=== PATIENT | female | born 1980 ===

== ENCOUNTER 2019-07-21 07:01 | Day surgery (SDC) | payer BC ==
[~2019-07-21] VITALS: Ht 162.6 cm; Wt 65.3 kg
[2019-07-21] VITALS (8 sets, daily range): BP systolic 98–123; BP diastolic 47–75
[2019-07-21] MEDS ORDERED: NKM (08:15)
--- NOTE | 2019-07-21 08:37 | Anethesia Preoperative Eval ---
Anesthesia Pre-op PMH/ROS General Date of Evaluation: Jul 21, 2019 Time of Evaluation: 09:00 Anesthesiologist: Edy ASA Score: ASA 2 Mallampati Score Class I : Soft palate, uvula, fauces, pillars visible Class II: Soft palate, uvula, fauces visible Class III: Soft palate, base of uvula visible Class IV: Only hard plate visible Mallampati Classification: Class I Surgeon: aide Diagnosis: gerd Surgical Procedure: EGD w/ bx Anesthesia History: none Family History: no anesthesia problems Allergies: Coded Allergies: No Known Allergies (Unverified , 07/21/19) Medications: see eMAR Patient NPO?: Yes NPO Date: Jul 21, 2019 NPO Time: 00:01 Past Medical History Cardiovascular: Denies: HTN, CAD, MT, valve dz, arrhythmia, other Pulmonary: Denies: asthma, COPD, JUN, other Gastrointestinal/Genitourinary: Reports: GERD Neurologic/Psychiatric: Denies: dementia, CVA, depression/anxiety, TIA, other Endocrine: Denies: DM, hypothyroidism, steroids, other HEENT: Denies: cataract (L), cataract (R), glaucoma, PLATINUM (L), PLATINUM (R), other Hematology/Immune: Denies: anemia, DVT, bleeding disorder, other Musculoskeletal/Integumentary: Denies: OA, RA, DJD, DDD, edema, other Other: other - breast CA Anesthesia Pre-op Phys. Exam Physician Exam Last Vital Signs Date Time Temp Pulse Resp B/P (MAP) Pulse Ox O2 Delivery O2 Flow Rate FiO2 07/21/19 08:20 Room Air 07/21/19 08:08 97.3 70 18 98/49 100 Constitutional: NAD Neurologic: CN 2-12 intact Cardiovascular: RRR Respiratory: CTA Gastrointestinal: S/NT/ND, other Airway Exam Mallampati Classification 1 Mallampati Score: Class I MO: full ROM: full Teeth: intact Anesthesia Pre-op A/P Labs Urine Test Test 07/21/19 07:20 Urine HCG, Qualitative Negative (NEGATIVE) Risk Assessment & Plan Plan: MAC Status Change Before Surgery: No Pre-Antibiotics Given Within 1 Hr of Incision: No Rebeca Rogers M.D. Jul 21, 2019 08:37
--- NOTE | 2019-07-21 08:38 | Brief Operative Note ---
Rebeca Rogers M.D. Jul 21, 2019 08:38
--- NOTE | 2019-07-21 08:50 | 48 Hour Post Anesthesia Eval ---
Post Anesthesia Evaluation Procedure: EGD w/ bx Date of Evaluation: Jul 21, 2019 Time of Evaluation: 10:15 Blood Pressure Systolic: 110 0: 61 Pulse Rate: 62 Respiratory Rate: 20 Temperature (Fahrenheit): 98 O2 Sat by Pulse Oximetry: 100 Airway: patent Nausea: No Vomiting: No Pain Intensity: 0 Hydration Status: adequate Mental Status/LOC: patient returned to baseline Follow-up care needed: ready to discharge Rebeca Rogers M.D. Jul 21, 2019 08:50
--- NOTE | 2019-07-21 08:59 | Pre-Procedure Note/Attestation ---
Pre-Procedure Note/Attestation Complete Prior to Procedure Planned Procedure: not applicable Procedure Narrative: egd Indications for Procedure Pre-Operative Diagnosis: GERD Attestation I attest that I discussed the nature of the procedure; its benefits; risks and complications; and alternatives (and the risks and benefits of such alternatives ), prior to the procedure, with the patient (or the patient's legal assisted sales representative). I attest that, if there was a reasonable possibility of needing a blood transfusion, the patient (or the patient's legal assisted sales representative) was given the [facility] standardized written summary, pursuant to the [place] Blood Safety Act ([place] Health and Safety Code # 1645, as amended). I attest that I re-evaluated the patient just prior to the surgery and that there has been no change in the patient's H&P, except as documented below: Darrell Sellers MD Jul 21, 2019 08:59
[2019-07-21] MEDS ORDERED: LR 1000ml ONE (09:00)
[2019-07-21] MEDS ORDERED: Propofol 200mg/20ml IV ONE (09:00)
--- NOTE | 2019-07-21 09:00 | Short Stay Surgery H&P ---
History of Present Illness History of Present Illness Chief Complaint gerd HPI Olivia Camejo is a 39 year old female who was admitted on for Abdominal Pain Patient History Allergies: Coded Allergies: No Known Allergies (Unverified , 07/21/19) PAST MEDICAL HISTORY: (1) Breast CA Medication History Scheduled No Known Medications* (NKM - No Known Medications*), 0 ., (Reported) Review of Systems Cardiovascular: Reports: no symptoms Respiratory: Reports: no symptoms Skeletal: Reports: no symptoms Gastrointestinal: Reports: no symptoms Genitourinary: Reports: no symptoms Neurologic: Reports: no symptoms Endocrine: Reports: no symptoms Hematologic: Reports: no symptoms Physical Exam Vital Signs Last Vital Signs Date Time Temp Pulse Resp B/P (MAP) Pulse Ox O2 Delivery O2 Flow Rate FiO2 07/21/19 08:20 Room Air 07/21/19 08:08 97.3 70 18 98/49 100 Labs Laboratory Tests Test 07/21/19 07:20 Urine HCG, Qualitative Negative (NEGATIVE) Skin: normal HENT: normal Heart: normal Lungs: normal Abdomen: normal Extremities: normal Plan Plan of Care EGD Attestation Are the patient's medical conditions optimized for surgery? Attestation Response: yes Darrell Sellers MD Jul 21, 2019 08:59
--- NOTE | 2019-07-21 09:14 | Endoscopy Procedure Note ---
Endoscopy Procedure Note General Indication for Procedure: GERD, Procedures Performed: EGD Operative Findings/Diagnosis: DU Specimen: yes Pt Tolerated Procedure Well: Yes Estimated Blood Loss: none Anesthesia Anesthesiologist: vel Anesthesia: MAC Inserted Devices Implant(s) used?: No GI Core Measures 50 yrs or older w/o bx or poly: Not Applicable 10yrs. F/U recommended: Not Applicable Darrell Sellers MD Jul 21, 2019 09:14
--- NOTE | 2019-07-21 09:29 | Immediate Post-Op Evaluation ---
Immediate Post-Op Evalulation Immediate Post-Op Evalulation Procedure: EGD w/ bx Date of Evaluation: Jul 21, 2019 Time of Evaluation: 09:25 IV Fluids: 300ml Blood Pressure Systolic: 99 Blood Pressure Diastolic: 47 Pulse Rate: 81 O2 Sat by Pulse Oximetry: 99 Temperature (Fahrenheit): 97.1 Pain Score (1-10): 0 Nausea: No Vomiting: No Patient Status: awake Hydration Status: adequate Rebeca Rogers M.D. Jul 21, 2019 09:29
--- NOTE | 2019-07-21 14:15 | Procedure Note ---
DATE OF PROCEDURE: 07/21/2019 SURGEON: Darrell Sellers M.D. PROCEDURE: Upper endoscopy with biopsy. INSTRUMENT: Olympus adult flexible upper endoscope. ANESTHESIA: Per DrNaye . INDICATION: The patient had a positive PET scan, possible finding in the esophagus. REASON FOR PROCEDURE: The procedure, risks, benefits, and possible consequences, including hemorrhage, aspiration, perforation and infection, and alternative treatments, were explained to the patient/legal guardian by Dr. Darrell Sellers and the patient/legal guardian understood and accepted these risks. PROCEDURE IN DETAIL: After informed consent was obtained and the patient was adequately sedated, Olympus upper endoscope was advanced from mouth into the second portion of the duodenum and retroflexion was performed in the stomach. The patient had no obvious tumor seen in the esophagus. GE junction was found to be about 35 cm from the incisors. The patient has evidence of atrophic gastritis. Random biopsy from antrum and body was obtained to rule out H. pylori infection. The patient had evidence of duodenitis with possible healing duodenal ulcer in the duodenal bulb. The patient tolerated the procedure very well without any complication. SUMMARY OF FINDINGS: 1. No obvious esophageal mass. 2. Atrophic gastritis, status post biopsy to rule out H. pylori infection. 3. Shallow healing duodenal ulcer. RECOMMENDATIONS: Follow up biopsy results and treat accordingly. Follow up with Oncology for the treatment of breast cancer. I want to thank, Dr. Alondra Quijano, for this kind referral. Darrell Sellers M.D. DR: GUIDO JOB#: [id number] CC: Alondra Quijano M.D.; Fax#: [phone]
== END 2019-07-21 10:15 | disposition home or self-care (01) ==
LOC: GAS 07:01
DX: R10.9 Unspecified abdominal pain (principal); K26.9 Duodenal ulcer, unspecified as acute or chronic, without hemorrhage or perforation; Z85.3 Personal history of malignant neoplasm of breast; K21.9 Gastro-esophageal reflux disease without esophagitis; K29.50 Unspecified chronic gastritis without bleeding; B96.81 Helicobacter pylori [H. pylori] as the cause of diseases classified elsewhere
CPT/HCPCS: 43239; 81025; J2704; J7120; 94003; 94150